=== PATIENT | female | born 1985 | race Caucasian/White ===

== ENCOUNTER 2021-04-13 18:24 | Emergency (ER) | payer BC ==
[2021-04-13 19:07] VITALS: BP 123/69; PULSE 107; TEMP 98; BMI 23.8
== END 2021-04-13 20:26 | disposition home or self-care (01) ==
LOC: JER 18:24
DX: R05 Cough (principal); R51.9 Headache, unspecified; J02.9 Acute pharyngitis, unspecified; R11.2 Nausea with vomiting, unspecified; R19.7 Diarrhea, unspecified; Z11.52 Encounter for screening for COVID-19
CPT/HCPCS: 71046-TC-FY; 99284-25; C9803; U0003; U0005